=== PATIENT | male | born 1955 | race Caucasian/White ===

== ENCOUNTER → 2023-02-11 09:16 | Outpatient (CLI) | payer MEDICARE, SELFPAY ==
--- NOTE | 2023-02-11 | DI.MRI.S_ITS ---
PROCEDURE: MR SHOULDER RT WO CON INDICATIONS: Impingement syndrome of right shoulder TECHNIQUE: Noncontrast oblique coronal T2 fast spin echo with fat saturation, oblique sagittal T1 spin echo and T2 fast spin echo with fat saturation, axial T1 spin echo and T2 fast spin echo with fat saturation through the shoulder. COMPARISON: None. FINDINGS: Image quality: Excellent. Rotator cuff: There is moderate T2 signal elevation diffusely throughout the supraspinatus and infraspinatus tendons at the humeral insertion sites extending to the musculotendinous junctions, indicating tendinopathy. Superimposed moderate grade intrasubstance tearing of the anterior, mid, and posterior supraspinatus as well as the anterior infraspinatus tendon at the humeral insertion site. Subscapularis and teres minor tendons are intact. No rotator cuff atrophy. Bones and bursae: No bone marrow contusions or fractures. Moderate acromioclavicular joint degeneration. The acromion demonstrates conventional anatomy, without an os acromiale. No pathologic subacromial-subdeltoid or subcoracoid bursal fluid is present. Capsule and soft tissues: There is undercutting of the posterior labrum. The long head of the biceps tendon demonstrates normal location and morphology. The rotator interval appears normal, without fibrosis. The coracohumeral ligament is normal in thickness. IMPRESSION: 1. Supraspinatus and infraspinatus tendinopathy with superimposed partial thickness tearing. No full-thickness rotator cuff tear. 2. Acromioclavicular joint osteoarthritis. 3. Posterior labral tearing. Dictated by: Mallory Fowler M.D. on 02/11/2023 at 10:38 Approved by: Mallory Fowler M.D. on 02/11/2023 at 10:40
== END ==
PROVIDERS: PCP Internal Medicine; Referring Provider Orthopaedic Surgery; Visit Provider Orthopaedic Surgery
DX: M75.41 Impingement syndrome of right shoulder (principal); M75.111 Incomplete rotator cuff tear or rupture of right shoulder, not specified as traumatic; M19.011 Primary osteoarthritis, right shoulder; S43.491A Other sprain of right shoulder joint, initial encounter
CPT/HCPCS: 73221

== ENCOUNTER 2023-05-01 10:03 | Emergency (ER) | payer MEDICARE, SELFPAY ==
[2023-05-01] VITALS (10 sets, daily range): BP systolic 103–114; BP diastolic 64–70; PULSE 82–104; RESP 16–18; TEMP 36.7; O2SAT 96–100; BMI 26.4
--- NOTE | 2023-05-01 10:27 | ED_ITS ---
HPI - Abdominal Pain General Chief Complaint: Abdominal Pain Stated Complaint: vomiting, mucus, recently had Gallbladder removed Time Seen by Provider: 05/01/23 10:15 Source: patient Mode of arrival: Ambulatory History of Present Illness HPI narrative: 67-year-old male former smoker without chronic medical history presents with the chief complaint multiple episodes of vomiting this morning as well as epigastric pain that radiates to his back. He states his pain seems to be worse when he moves and improves with rest. He states that when he vomited maybe his pain got briefly better. He is had no fever or chills. He denies any change in medications or diet. Denies any constipation or diarrhea and has no urinary complaints. He states about 5 weeks ago he had his gallbladder removed and was referred by Ross[facility] to [facility] because of what sounds like the potential of a stone within the common bile duct, we are working on obtaining records now. Related Data Previous Rx's Medication Instructions Recorded ondansetron 4 mg disintegrating 4 mg PO TID-QID PRN nausea and 05/01/23 tablet vomiting #10 tabs oxycodone 5 mg tablet 5 mg PO Q6H PRN pain #20 tabs 05/01/23 Allergies Allergy/AdvReac Type Severity Reaction Status Date / Time No Known Drug Allergies Allergy Verified 05/01/23 10:16 Review of Systems Review of Systems Narrative: GENERAL: See HPI HEENT: Denies sinus pain, ear pain, sore throat, difficulty swallowing, dizziness. RESPIRATORY: Denies dyspnea, cough, wheezing, hemoptysis, sputum. CARDIOVASCULAR: Denies chest pain, palpitations, orthopnea, edema, GASTROINTESTINAL: See HPI : Denies dysuria, frequency, incontinence, hematuria, urinary retention. MUSCULOSKELETAL: denies weakness, joint pain, or bony pain SKIN: Denies rash, skin lesions, or other NEUROLOGIC: Denies weakness, headache, numbness, change in speech, confusion, seizures, incoordination. PSYCHIATRIC: No concerning psychosocial issues. 12 point review of systems is negative except for those stated above Patient History Social History Smoking Status: Former smoker Smoking Status: Former smoker Substance Use Type: marijuana Exam Narrative Exam Narrative: GENERAL: [67] year old patient appears stated age. Well-developed patient, in mild distress. HEAD: Atraumatic. Normocephalic. EYES: Pupils equal round and reactive. Extraocular motions intact. No scleral icterus. No injection or drainage. ENT: Nose without bleeding, purulent drainage. Throat without erythema, tonsillar hypertrophy or exudate. Airway patent. NECK: Trachea midline. Non tender CARDIOVASCULAR: Regular rate and rhythm without murmurs, gallops, or rubs. RESPIRATORY: Clear to auscultation. Breath sounds equal bilaterally. No wheezes, rales, or rhonchi. GASTROINTESTINAL: Abdomen soft, tender in the epigastrium, no rebound, nondistended. EXTREMITIES: No edema or joint tenderness. BACK: Nontender without deformity or crepitance. No flank tenderness. NEURO: AOx3. SKIN: No rash or erythema of visible areas Initial Vital Signs Initial Vital Signs: Vital Signs Temperature 98.0 F 05/01/23 10:10 Pulse Rate 104 H 05/01/23 10:10 Respiratory Rate 18 05/01/23 10:10 Blood Pressure 111/66 05/01/23 10:10 Pulse Oximetry 99 05/01/23 10:10 Oxygen Delivery Method Room Air 05/01/23 10:10 Course Orders Ordered: Discontinued Medications Hydromorphone HCl (Hydromorphone 0.5 Mg Inj) 0.5 mg IV NOW ONE Stop: 05/01/23 10:57 Last Admin: 05/01/23 12:20 Dose: 0.5 mg Documented By: RHIANNA Sodium Chloride (Normal Saline 0.9%) 1,000 mls @ 1,000 mls/hr IV BOLUS ONE Stop: 05/01/23 11:55 Last Infusion: 05/01/23 13:21 Dose: 0 mls/hr Documented By: Admin: 05/01/23 11:30 Dose: 1,000 mls/hr Documented By: RHIANNA Ondansetron HCl (Ondansetron 4 Mg/2 Ml Inj) 4 mg IV NOW PRN PRN Reason: Nausea And Vomiting Last Admin: 05/01/23 10:43 Dose: 4 mg Documented By: TC Pantoprazole Sodium (Pantoprazole 40 Mg Vial) 40 mg IV NOW ONE Stop: 05/01/23 10:28 Last Admin: 05/01/23 10:42 Dose: 40 mg Documented By: TC Reevaluation(s) Reevaluation #1: Pain well controlled, no vomiting Reevaluation #2: Patient tolerating orals Consultations Consultation #1: Call to [facility] Vital Signs Vital signs: Vital Signs - 8 hr 05/01/23 10:10 05/01/23 11:45 05/01/23 12:00 Temperature 98.0 F Pulse Rate 104 H 92 H Respiratory Rate 18 Blood Pressure 111/66 103/69 107/70 Pulse Oximetry 99 96 Oxygen Delivery Method Room Air 05/01/23 12:00 05/01/23 12:30 05/01/23 13:00 Temperature Pulse Rate 89 85 82 Respiratory Rate 16 Blood Pressure Pulse Oximetry 99 99 98 Oxygen Delivery Method 05/01/23 13:26 05/01/23 13:23 05/01/23 13:23 Temperature Pulse Rate 82 82 Respiratory Rate 16 Blood Pressure 105/64 105/64 Pulse Oximetry 100 99 Oxygen Delivery Method Room Air 05/01/23 13:30 05/01/23 13:30 05/01/23 14:00 Temperature Pulse Rate 83 Respiratory Rate Blood Pressure 103/64 112/69 Pulse Oximetry 98 Oxygen Delivery Method 05/01/23 14:00 05/01/23 14:30 05/01/23 14:30 Temperature Pulse Rate 85 83 Respiratory Rate 16 Blood Pressure 114/70 Pulse Oximetry 98 98 Oxygen Delivery Method MDM - Abdominal Pain Lab Data 05/01/23 10:32 05/01/23 10:32 Labs: Lab Results 05/01/23 05/01/23 05/01/23 Range/Units 10:32 10:32 11:59 WBC 11.8 H (4.5-11.0) X10^3/uL RBC 4.34 L (4.5-5.9) X10^6/uL Hgb 12.5 L (13.5-17.5) g/dL Hct 36.3 L (41-53) % MCV 83.7 (80-100) fL MCH 28.7 (26-34) PG MCHC 34.3 (30-36) % RDW 14.7 (11.6-14.8) % Plt Count 409 H (150-400) X10^3/uL Neut % (Auto) 85.6 H (50-75) % Lymph % (Auto) 7.4 L (25-40) % [place] % (Auto) 5.7 (3-14) % Eos % (Auto) 0.7 L (2-4) % Baso % (Auto) 0.6 (0-2) % Neut # (Auto) 40128 H (5923-8621) /uL Lymph # (Auto) 900 L (3868-8082) /uL [place] # (Auto) 700 (0-900) /uL Eos # (Auto) 100 (0-450) /uL Baso # (Auto) 100 (0-100) /uL Sodium 135 L (137-145) mmol/L Potassium 4.1 (3.4-5.1) mmol/L Chloride 100 (98-107) mmol/L Carbon Dioxide 28 (22-32) mmol/L BUN 8 L (9-20) mg/dL Creatinine 0.67 (0.66-1.25) mg/dL Estimated GFR > 60 (>60) mL/min BUN/Creatinine Ratio 11.9 (6-22) Glucose 125 H (80-110) mg/dL Calcium 9.4 (8.4-10.2) mg/dL Total Bilirubin 1.2 (0.2-1.3) mg/dL AST 22 (17-59) IU/L ALT 26 (<50) IU/L Alkaline Phosphatase 100 (38-126) U/L Total Protein 7.7 (6.3-8.2) g/dL Albumin 3.9 (3.5-5.0) g/dL Globulin 3.8 (1.7-4.1) g/dL Albumin/Globulin Ratio 1.0 (1.0-2.8) Lipase 187 (23-300) U/L Urine Color Yellow Urine Appearance Clear Urine pH 6.0 (4.5-8.0) Ur Specific [place] 1.020 (1.000-1.035) Urine Protein Negative (Negative) Urine Glucose (UA) Negative (Negative) g/dL Urine Ketones Negative (NEGATIVE) Urine Occult Blood Negative (Negative) Urine Nitrate Negative (Negative) Urine Bilirubin Negative (NEGATIVE) Urine Urobilinogen 1.0 (0.2) E.U./dL Ur Leukocyte Esterase Negative (NEGATIVE) Urine RBC None seen (0-5/HPF) Urine WBC 0-1/hpf (0-5/HPF) Ur Squamous Epith Cells None seen (0-5/HPF) Other Crystals Other crystals: Amorphous Sediment 2+ Urine Bacteria None seen (None) Urine Mucus 2+ H (Negative) Ur Culture Indicated? Cult not indicated Point of care testing: Urine Dip Bedside Urine Glucose Negative Bedside Urine Bilirubin + 1 Bedside Urine Ketone - Negative Urine Specific [place] 1.015 Bedside Urine Occult Blood - Negative Bedside Urine pH 6.0 Bedside Urine Protein +/- 15 Bedside Urine Urobilinogen - Negative Bedside Urine Nitrite - Negative Bedside Urine Leukocytes - Negative Esterase MDM Narrative Medical decision making narrative: [67] year old patient presents with epigastric pain and vomiting Multiple etiologies for patient's symptoms considered including, but not limited to: [Pancreatitis versus postsurgical complication versus bowel obstruction versus other] Prior Charts reviewed in our EMR Primary Historian: patient Labs reviewed and interpreted by myself: Minimal leukocytosis at 11.8, no significant anemia, electrolytes and kidney function as well as bilirubin and LFTs within normal, lipase within normal Imaging reviewed: CT of the abdomen and pelvis notes pancreatitis of the uncinate process, adjacent collections of low attenuation material likely represents walled-off necrosis. Wall thickening of the adjacent duodenum likely reactive. Biliary and pancreatic ducts in place Consultations: Discussed with GI at [facility]. They are reviewed hospital records from his visit there as well as today's history and physical exam and have reviewed today's imaging. They sure the opinion that given lack of fever, pain which is controlled, patient's ability to tolerate orals that he is appropriate for discharge. He has a scheduled appointment for Wednesday already and they have sent a message to their front office to contact him and check in over the next few days. Patient's symptoms improved over duration of stay with above-stated therapies. Findings and discharge diagnosis discussed with patient/family followed by verbalization of understanding Return precautions discussed with patient/family whom verbalize understanding of diagnosis and plan Discharge Plan Departure Patient Disposition: Home Clinical Impression: Acute pancreatitis Instructions: DI for Pancreatitis Activity Restrictions/Additional Instructions: *You have been diagnosed with [abdominal pain due to pancreatitis] * As we discussed your history and physical exam as well as labs and imaging are very reassuring. There is no evidence of any severe diagnoses that would require a specific or immediate intervention. *What to do: *Please continue to take your regular medications as directed. [x ] New medication prescriptions sent to your pharmacy: [[facility] ] *Please follow up with your primary care provider in 2-3 days, call for an appointment. Let them know you were seen in the Emergency Department and that we ask that you be seen in follow up. We will electronically transmit a record of today's note if your PCP is in our system *Please consider a clear liquid diet for the next 24-48 hours and then slowly advance to regular as tolerated. Also, try to avoid alcohol, nicotine, caffeine, spicy, acidic or fatty foods as this may worsen your symptoms *If you do not have a primary care provider please contact the [facility] Resource line at [phone]. They will ask some questions about your medical history and help get you set up with a doctor in the community. *Return to Emergency Department if you should have any new, worsening or concerning symptoms, such as [fever greater than 101 F, shaking chills, worsening pain, persistent vomiting or other bothersome symptoms] Prescriptions: New oxycodone 5 mg tablet 5 mg PO Q6H PRN (Reason: pain) Qty: 20 0RF ondansetron 4 mg tablet,disintegrating 4 mg PO TID-QID PRN (Reason: nausea and vomiting) Qty: 10 0RF Referrals: Andry Hines MD [Primary Care Provider] - Stand Alone Forms: Patient Portal/API
[2023-05-01 10:39] LABS: Add Manual Diff / Slide Review NO; Basophils Absolute Auto 100 /uL (0-100); Basophils Percent Auto 0.6 % (0-2); Eosinophils Absolute Auto 100 /uL (0-450); Eosinophils Percent Auto 0.7 % (2-4); Hematocrit 36.3 % (41-53); Hemoglobin 12.5 g/dL (13.5-17.5); Lymphocytes Absolute Auto 900 /uL (1100-4500); Lymphocytes Percent Auto 7.4 % (25-40); Mean Corpuscular HGB Conc 34.3 % (30-36); Mean Corpuscular Hemoglobin 28.7 PG (26-34); Mean Corpuscular Volume 83.7 fL (80-100); Monocytes Absolute Auto 700 /uL (0-900); Monocytes Percent Auto 5.7 % (3-14); Neutrophils Absolute Auto 10100 /uL (1500-7000); Neutrophils Percent Auto 85.6 % (50-75); Platelet Count 409 X10^3/uL (150-400); Red Blood Cell Count 4.34 X10^6/uL (4.5-5.9); Red Cell Distribution Width 14.7 % (11.6-14.8); White Blood Cell Count 11.8 X10^3/uL (4.5-11.0)
[2023-05-01] MEDS: PANTOPRAZOLE 40 MG VIAL IV (10:42)
[2023-05-01] MEDS: ONDANSETRON 4 MG/2 ML INJ IV (10:43)
[2023-05-01 10:51] LABS: Alanine Aminotransferase 26 IU/L (<50); Albumin 3.9 g/dL (3.5-5.0); Alkaline Phosphatase 100 U/L (38-126); Aspartate Aminotransferase 22 IU/L (17-59); BUN Creatinine Ratio 11.9 (6-22); Bilirubin Total 1.2 mg/dL (0.2-1.3); Blood Urea Nitrogen 8 mg/dL (9-20); Calcium 9.4 mg/dL (8.4-10.2); Carbon Dioxide 28 mmol/L (22-32); Chloride 100 mmol/L (98-107); Estimated Glomerular Filt Rate > 60 mL/min (>60); Globulin 3.8 g/dL (1.7-4.1); Glucose 125 mg/dL (80-110); HEMOLYSIS < 15 (0-50); Lipase 187 U/L (23-300); Potassium 4.1 mmol/L (3.4-5.1); Sodium 135 mmol/L (137-145); Total Protein 7.7 g/dL (6.3-8.2)
--- NOTE | 2023-05-01 10:56 | DI.CT.S_ITS ---
PROCEDURE: CT ABDOMEN PELVIS W CON INDICATIONS: severe epigastric pain, GB surgery 5weeks ago. vomiting TECHNIQUE: After the administration of intravenous contrast, axial sections acquired from the lung bases to the pubic symphysis. Coronal and sagittal reformats were performed. For radiation dose reduction, the following was used: automated exposure control, adjustment of mA and/or kV according to patient size. COMPARISON: None. FINDINGS: Image quality: Excellent. Lung bases: Unremarkable. Heart: No significant findings. ABDOMEN: Liver: Unremarkable. Gallbladder: Surgically absent. Small cystic structure with the adjacent hepatic parenchyma, may represent simple cyst versus remnant gallbladder. Biliary ducts: Biliary stent in place.. Pancreas: Pancreatic duct stent in place. Enlargement of the pancreatic head and uncinate process with areas of mild hypoattenuation. There are irregular adjacent walled-off collections with example collection measuring 6.1 x 3.2 x 2.8 cm. These collections contains areas which are lower attenuation and likely represent walled-off necrosis. Spleen: Unremarkable. Adrenal Glands: Unremarkable. Kidneys and Ureters: Unremarkable. Stomach and Bowel: Wall thickening of the duodenum adjacent to the pancreatic inflammatory changes, likely reactive. Diverticulosis without evidence of acute diverticulitis. Peritoneum: No abnormal intraperitoneal fluid. No free air. Ventral Wall: No hernias. Abdominal Nodes: No retroperitoneal or mesenteric adenopathy by size criteria. Vessels: Aorta and inferior vena cava are normal in size. Atherosclerotic vascular calcifications. PELVIS: Pelvic Organs: Unremarkable. Bladder: Unremarkable. Pelvic Nodes: No enlarged lymph nodes. Miscellaneous: No hernias are seen. Bones: Unremarkable. IMPRESSION: 1. Findings consistent with pancreatitis of the head and uncinate process. There adjacent collections with low-attenuation material which likely represents a walled off necrosis. 2. Wall thickening of the adjacent duodenum is likely reactive. 3. Biliary and pancreatic duct stents in place. Dictated by: Christiano Sue M.D. on 05/01/2023 at 12:53 Approved by: Christiano Sue M.D. on 05/01/2023 at 13:00
[2023-05-01] MEDS: SODIUM CHLORIDE 0.9% 1,000 ML 1000 ML IV (11:30)
[2023-05-01 12:03] LABS: Appearance Urine UA CLEAR; Bilirubin Urine UA NEGATIVE (NEGATIVE); Color Urine UA YELLOW; Glucose Urine UA NEGATIVE (Negative); Ketones Urine UA NEGATIVE (NEGATIVE); Leukocyte Esterase Urine UA NEGATIVE (NEGATIVE); Nitrite Urine UA NEGATIVE (Negative); Occult Blood Urine UA NEGATIVE (Negative); Protein Urine UA NEGATIVE (Negative)
[2023-05-01 12:13] LABS: Bacteria Urine None Seen; RBC Urine None Seen (0-5/HPF); Squamous Epithelial Cell Urine None Seen (0-5/HPF); WBC Urine 0-1/HPF (0-5/HPF)
[2023-05-01 12:16] LABS: Amorphous Sediment Urine 2+; Culture Indicated Urine Cult Not Indicated; Mucus Urine 2+ (Negative); Other Crystals Urine Other Crystals:
[2023-05-01] MEDS: HYDROMORPHONE 0.5 MG INJ IV (12:20)
== END 2023-05-01 14:48 | disposition home or self-care (01) ==
PROVIDERS: Emergency Provider Emergency Medicine; PCP Internal Medicine
DX: K85.90 Acute pancreatitis without necrosis or infection, unspecified (principal)
CPT/HCPCS: 36415; 74177; 80053; 81001; 81003; 83690; 85025; 93005; 96361; 96374; 96375; 99284; C9113; J1170; J2405; Q9967

== ENCOUNTER → 2023-07-07 07:59 | Outpatient (CLI) | payer MEDICARE, SELFPAY ==
[2023-07-07 08:24] LABS: Estimated Glomerular Filt Rate > 60 mL/min (>60)
--- NOTE | 2023-07-07 08:43 | DI.CT.S_ITS ---
PROCEDURE: CT ABDOMEN PANCREATIC PROTOCOL INDICATIONS: ACUTE PANCREATITIS TECHNIQUE: After the administration of intravenous contrast, 3 mm thick pancreatic-phase images acquired from the diaphragm to the iliac crests. 3 mm thick coronal and sagittal reformats were performed. For radiation dose reduction, the following was used: automated exposure control, adjustment of mA and/or kV according to patient size. COMPARISON: [facility], CT, CT ABDOMEN PELVIS W CON, 05/01/2023, 12:06. FINDINGS: Image quality: Excellent. Lung bases: Lung bases are clear. Heart size is normal. Liver: No solid mass. Cystic lesion at the gallbladder fossa. Low attenuation, favoring a patent steatosis. Gallbladder and biliary tree: Gallbladder is absent no filling defect within the common bile duct. Spleen: Enlarged. Pancreas: Significant reduction in edema within the pancreatic head. No measurable fluid collections. Homogeneous enhancement. No ductal dilation. Adrenal glands: No adrenal nodules. Kidneys: No hydronephrosis. No solid mass. No complex renal cysts which requires follow-up. Peritoneum and bowel: Unenhanced bowel loops demonstrate normal wall thickness and caliber. No free fluid or air. Nodes and vessels: No retroperitoneal or mesenteric adenopathy by size criteria. Aorta and inferior vena cava are normal in size. Bones: No suspicious bony lesions. No vertebral body compression fractures. Miscellaneous: No ventral hernias. IMPRESSION: Significant interval reduction of edema throughout the pancreas, without measurable fluid collection. Interval cholecystectomy. No evidence of biloma. Splenomegaly, likely due to underlying liver disease (hepatic steatosis). Dictated by: Jossue De La Fuente M.D. on 07/07/2023 at 11:23 Approved by: Jossue De La Fuente M.D. on 07/07/2023 at 11:27
== END ==
PROVIDERS: Emergency Medicine; PCP Internal Medicine; Referring Provider Internal Medicine Gastroenterology; Visit Provider Internal Medicine Gastroenterology
DX: K85.90 Acute pancreatitis without necrosis or infection, unspecified (principal); R16.1 Splenomegaly, not elsewhere classified; K76.0 Fatty (change of) liver, not elsewhere classified
CPT/HCPCS: 36415; 74170; 82565

== ENCOUNTER 2024-04-17 11:24 | Emergency (ER) | payer MEDICARE, SELFPAY ==
[2024-04-17 11:32] VITALS: BP 134/86; PULSE 68; RESP 18; TEMP 36.4; O2SAT 98; BMI 28.5
--- NOTE | 2024-04-17 12:20 | ED.BACK ---
HPI - Back Pain/Injury <Toña Matthew PA-C - Last Filed: 04/17/24 12:45> General Chief Complaint: Back Pain/Injury Stated Complaint: low back pain x5 days Time Seen by Provider: 04/17/24 11:57 History of Present Illness HPI Narrative: 68-year-old male with past medical history pancreatitis, hypertension presents to the ED with 5 days of lower back pain. Pain radiates down to the hips but not down the legs. No trauma. Patient states he has been doing a lot of hard labor, working on his garden shed which could be contributing to his symptoms. No numbness, tingling, weakness. No urinary hesitancy, urinary incontinence, bowel incontinence. No saddle paresthesia. No fever, chills. Patient does endorse some chronic back issues which have been manageable, has been exacerbated with activity, however resolved spontaneously in 1 or 2 days. Related Data Previous Rx's Medication Instructions Recorded ondansetron 4 mg disintegrating 4 mg PO TID-QID PRN nausea and 05/01/23 tablet vomiting #10 tabs oxycodone 5 mg tablet 5 mg PO Q6H PRN pain #20 tabs 05/01/23 cyclobenzaprine 10 mg tablet 10 mg PO TID PRN muscle spasm 7 04/17/24 days #21 tabs Allergies Allergy/AdvReac Type Severity Reaction Status Date / Time No Known Drug Allergies Allergy Verified 05/01/23 10:16 Review of Systems <Toña Matthew PA-C - Last Filed: 04/17/24 12:45> Constitutional Constitutional: Denies chills, Denies fatigue, Denies fever(s), Denies frequent falls, Denies lethargy and Denies weakness Eyes Eyes: Denies change in vision, Denies eye discharge, Denies irritation and Denies loss of vision ENT Ears, Nose, Mouth, and Throat: Denies change in voice, Denies dizziness, Denies neck pain, Denies sore throat and Denies throat swelling Cardiovascular Cardiovascular: Denies chest pain, Denies irregular heart rhythm, Denies lightheadedness, Denies palpitations, Denies dyspnea, Denies dyspnea on exertion and Denies orthopnea Respiratory Respiratory: Denies cough, Denies dyspnea, Denies dyspnea on exertion and Denies wheezing Gastrointestinal Gastrointestinal: Denies abdominal pain, Denies change in bowel habits, Denies diarrhea, Denies nausea and Denies vomiting Musculoskeletal Musculoskeletal: Reports back pain, Denies neck pain and Denies numbness Integumentary/Breasts Skin/Breast: Denies pruritus, Denies erythema, Denies rash and Denies wounds Neurologic Neurologic: Denies behavioral changes, Denies confusion, Denies dizziness, Denies frequent falls, Denies loss of vision, Denies numbness and Denies weakness Psychiatric Psychiatric: Denies anxiety, Denies behavioral changes, Denies confusion, Denies depression, Denies homicidal ideation and Denies suicidal ideation Endocrine Endocrine: Denies fatigue, Denies flushing and Denies palpitations Hematologic/Lymphatic Hematologic/Lymphatic: Denies easy bruising Allergic/Immunologic Allergic/Immunologic: Denies urticaria, Denies throat swelling and Denies wheezing Patient History <Toña Matthew PA-C - Last Filed: 04/17/24 12:45> Social History Smoking Status: Former smoker Smoking Status: Former smoker alcohol intake frequency: a few times a week Alcohol type: wine Substance Use Type: marijuana Exam <Toña Matthew PA-C - Last Filed: 04/17/24 12:45> Narrative Exam Narrative: Const General:?cooperative, healthy appearing and comfortable [facility] Head:?normal to inspection Ears:?hearing grossly normal bilaterally Nose:?external nose normal Face and sinus:?normal facial exam and sinuses nontender Mouth:?oral mucosae normal Throat:?posterior oropharynx normal Eyes General:?appearance normal, both eyes and all related structures Neck Neck:?normal visual inspection and no lymphadenopathy noted Resp Effort & Inspection:?normal respiratory effort Auscultation:?clear to auscultation bilaterally Cardio Rate:?regular rate Rhythm:?regular rhythm Musculoskeletal No midline tenderness to palpation. No paraspinal tenderness to palpation. Patient appears to be walking slowly due to pain but gait otherwise normal. No rashes. Strength and sensation is intact. There is full range of motion. Neurovascularly intact. Neuro General:?patient alert, patient awake and patient oriented x3 Initial Vital Signs Initial Vital Signs: Vital Signs Temperature 97.6 F 04/17/24 11:32 Pulse Rate 68 04/17/24 11:32 Respiratory Rate 18 04/17/24 11:32 Blood Pressure 134/86 04/17/24 11:32 Pulse Oximetry 98 04/17/24 11:32 Oxygen Delivery Method Room Air 04/17/24 11:32 <DO Jada Flores Last Filed: 04/18/24 09:00> Initial Vital Signs Initial Vital Signs: Vital Signs Temperature 97.6 F 04/17/24 11:32 Pulse Rate 68 04/17/24 11:32 Respiratory Rate 18 04/17/24 11:32 Blood Pressure 134/86 04/17/24 11:32 Pulse Oximetry 98 04/17/24 11:32 Oxygen Delivery Method Room Air 04/17/24 11:32 Course <Toña Matthew PA-C - Last Filed: 04/17/24 12:45> Vital Signs Vital signs: Vital Signs - 8 hr 04/17/24 11:32 Temperature 97.6 F Pulse Rate 68 Respiratory Rate 18 Blood Pressure 134/86 Pulse Oximetry 98 Oxygen Delivery Method Room Air <Ana Crespo DO - Last Filed: 04/18/24 09:00> Vital Signs Vital signs: Vital Signs - 8 hr 04/17/24 11:32 Temperature 97.6 F Pulse Rate 68 Respiratory Rate 18 Blood Pressure 134/86 Pulse Oximetry 98 Oxygen Delivery Method Room Air MDM - Back Pain/Injury <OLBO Franz Last Filed: 04/17/24 12:45> MDM Narrative Medical decision making narrative: 68-year-old male with past medical history pancreatitis, hypertension presents to the ED with 5 days of lower back pain. Physical exam is reassuring for no midline tenderness to palpation or paraspinal tenderness to palpation. No red flag symptoms including fever, chills, urinary hesitancy, saddle paresthesias, numbness, tingling, weakness. Patient's symptoms most consistent with a musculoskeletal sprain/strain of the lower back from activity. Recommend Tylenol, ibuprofen, muscle relaxants. Recommend follow-up with PCP, PT referrals. ED return precautions discussed with patient. Patient verbalized understanding. Medical records reviewed: Yes Discharge Plan Departure Patient Disposition: Home Clinical Impression: Strain of lumbar region Qualifiers: Encounter type: initial encounter Qualified Code(s): S39.012A - Strain of muscle, fascia and tendon of lower back, initial encounter Instructions: DI for Back Strain or Sprain Activity Restrictions/Additional Instructions: You were evaluated in the ED today for lower back pain. It appears that your symptoms are most consistent with a musculoskeletal sprain/strain of the lower back from all the activity. You may take 600 mg of ibuprofen every 8 hours with food. You may also take 1000 mg of Tylenol every 8 hours. You were also being prescribed a muscle relaxant. The muscle relaxant can make you sleepy, therefore please refrain from driving, operating machinery or swimming when taking this medication. Please follow-up with your PCP as soon as possible for further evaluation and possible physical therapy referral. Return to the ED if you have worsening symptoms, numbness, tingling, weakness, urinary difficulties. Prescriptions: New cyclobenzaprine 10 mg tablet 10 mg PO TID PRN (Reason: muscle spasm) 7 Days Qty: 21 0RF No Action oxycodone 5 mg tablet 5 mg PO Q6H PRN (Reason: pain) Qty: 20 0RF ondansetron 4 mg tablet,disintegrating 4 mg PO TID-QID PRN (Reason: nausea and vomiting) Qty: 10 0RF Referrals: Andry Hines MD [Primary Care Provider] - Stand Alone Forms: Patient Portal/API ED Sign-out <Ana Crespo DO - Last Filed: 04/18/24 09:00> Cosign ED Attending Boyature Attestation: I was available for consultation.
[2024-04-17 12:41] VITALS: BP 123/82; PULSE 60; RESP 20; TEMP 37; O2SAT 98
== END 2024-04-17 12:42 | disposition home or self-care (01) ==
PROVIDERS: Emergency Provider Student in an Organized Health Care Education/Training Program; PCP Internal Medicine
DX: S39.012A Strain of muscle, fascia and tendon of lower back, initial encounter (principal)
CPT/HCPCS: 99281

== ENCOUNTER → 2024-11-09 14:52 | Outpatient (CLI) | payer MEDICARE, SELFPAY ==
--- NOTE | 2024-11-09 14:54 | DI.RAD.S_ITS ---
PROCEDURE: XR HAND LT MIN 3V INDICATIONS: Bilateral Hand Pain TECHNIQUE: 3 views of the hand(s) acquired. COMPARISON: None. FINDINGS: Bones: No fractures or dislocations. Carpal bones are normally aligned. No suspicious bony lesions. Soft tissues: No suspicious soft tissue calcifications. IMPRESSION: No acute bony abnormality. Dictated by: Ishmael Roth M.D. on 11/11/2024 at 10:27 Approved by: Ishmael Roth M.D. on 11/11/2024 at 10:27
--- NOTE | 2024-11-09 14:54 | DI.RAD.S_ITS ---
PROCEDURE: XR HAND RT MIN 3V INDICATIONS: Bilateral Hand Pain TECHNIQUE: 3 views of the hand(s) acquired. COMPARISON: None. FINDINGS: Bones: No fractures or dislocations. Carpal bones are normally aligned. No suspicious bony lesions. Soft tissues: No suspicious soft tissue calcifications. IMPRESSION: No acute bony abnormality. Dictated by: Ishmael Roth M.D. on 11/11/2024 at 10:25 Approved by: Ishmael Roth M.D. on 11/11/2024 at 10:27
--- NOTE | 2024-11-09 14:54 | DI.RAD.S_ITS ---
PROCEDURE: XR LUMBAR SPINE 2-3V INDICATIONS: Back pain TECHNIQUE: 3 views of the lumbar spine were acquired. COMPARISON: None. FINDINGS: Bones: 5 [id number] vertebrae are present. There is normal bony alignment. Mild to moderate L2-L3 and L5-S1 disc height loss noted. No vertebral body compression fractures. No suspicious bony lesions. Soft tissues: Overlying bowel gas pattern is normal. No suspicious soft tissue calcifications. Right upper quadrant surgical clips are noted. IMPRESSION: No acute bony abnormality. L2-L3 and L5-S1 disc height loss noted. Dictated by: Ishmael Roth M.D. on 11/11/2024 at 10:28 Approved by: Ishmael Roth M.D. on 11/11/2024 at 10:29
[2024-11-09 15:43] LABS: Add Manual Diff / Slide Review NO; Basophils Absolute Auto 100 /uL (0-100); Eosinophils Absolute Auto 100 /uL (0-450); Eosinophils Percent Auto 2.1 % (2-4); Hemoglobin 16.5 g/dL (13.5-17.5); Lymphocytes Absolute Auto 1200 /uL (1100-4500); Lymphocytes Percent Auto 17.9 % (25-40); Mean Corpuscular HGB Conc 34.3 % (30-36); Mean Corpuscular Hemoglobin 31.2 PG (26-34); Mean Corpuscular Volume 90.8 fL (80-100); Monocytes Absolute Auto 400 /uL (0-900); Monocytes Percent Auto 5.8 % (3-14); Neutrophils Absolute Auto 4900 /uL (1500-7000); Neutrophils Percent Auto 73.2 % (50-75); Platelet Count 217 X10^3/uL (150-400); Red Blood Cell Count 5.28 X10^6/uL (4.5-5.9); Red Cell Distribution Width 13.8 % (11.6-14.8); White Blood Cell Count 6.6 X10^3/uL (4.5-11.0)
[2024-11-09 15:57] LABS: Alanine Aminotransferase 43 IU/L (<50); Albumin 4.9 g/dL (3.5-5.0); Albumin Globulin Ratio 1.9 (1.0-2.8); Alkaline Phosphatase 56 U/L (38-126); Aspartate Aminotransferase 33 IU/L (17-59); BUN Creatinine Ratio 14.6 (6-22); Bilirubin Total 2.4 mg/dL (0.2-1.3); Blood Urea Nitrogen 15 mg/dL (9-20); Calcium 9.8 mg/dL (8.4-10.2); Carbon Dioxide 25 mmol/L (22-32); Chloride 104 mmol/L (98-107); Cholesterol 198 mg/dL (140-199); Estimated Glomerular Filt Rate > 60 mL/min (>60); Globulin 2.6 g/dL (1.7-4.1); Glucose 91 mg/dL (80-110); HDL Cholesterol 51 mg/dL (40-60); HEMOLYSIS < 15 (0-50); LDL Cholesterol Calculated 116 mg/dL (<100); Potassium 4.9 mmol/L (3.4-5.1); Sodium 140 mmol/L (137-145); Total Protein 7.5 g/dL (6.3-8.2); Triglycerides 154 mg/dL (35-150)
[2024-11-09 16:15] LABS: Creatinine Urine Random 104.78 mg/dL
[2024-11-09 16:24] LABS: Microalbumin Urine Random < 0.6 mg/dL (0-1.6)
== END ==
LOC: LAB 14:53
PROVIDERS: PCP Family Medicine; Referring Provider Family Medicine; Visit Provider Family Medicine
DX: M79.641 Pain in right hand (principal); I10 Essential (primary) hypertension; Z12.5 Encounter for screening for malignant neoplasm of prostate; M79.642 Pain in left hand; M54.50 Low back pain, unspecified; G89.29 Other chronic pain; N40.1 Benign prostatic hyperplasia with lower urinary tract symptoms; N13.8 Other obstructive and reflux uropathy
CPT/HCPCS: 36415; 72100; 73130; 80053; 80061; 82043; 82570; 85025; G0103

== ENCOUNTER → 2024-11-29 11:59 | Outpatient (CLI) | payer MEDICARE, SELFPAY ==
[2024-11-30 10:11] LABS: Fecal Immunochemical Test Negative (Negative)
== END ==
LOC: LAB 12:00
PROVIDERS: PCP Family Medicine; Referring Provider Family Medicine; Visit Provider Family Medicine
DX: Z12.11 Encounter for screening for malignant neoplasm of colon (principal)
CPT/HCPCS: 82274